=== PATIENT | female | born 1995 | race Caucasian/White ===

== ENCOUNTER → 2018-12-24 | Outpatient (CLI) | payer OTHER ==
--- NOTE | 2018-12-24 12:02 | RADIOLOGY REPORT (SQ) ---
EXAM DESCRIPTION: U/S THYROID/SFT TISS HD NECK COMPLETED DATE/TIME: 12/24/2018 11:53 am REASON FOR STUDY: R74.8 ABNORMAL LEVELS OF OTHER SERUM ENZYMES R74.8 ABNORMAL LEVELS OF OTHER SERUM ENZYMES COMPARISON: None. TECHNIQUE: Dynamic and static keller-scale images acquired of the thyroid gland. Selected additional c olor/power Doppler images recorded. All images stored to PACS. LIMITATIONS: None. FINDINGS: RIGHT LOBE: Normal size. Mild heterogeneous echotexture. No cystic or solid masses. LEFT LOBE: Normal size. Mild heterogeneous echotexture. No cystic or solid masses. ISTHMUS: Normal size. Heterogeneous echotexture. No cystic or solid masses. OTHER: No other significant finding. IMPRESSION: Heterogeneous echotexture. No focal masses. TECHNICAL DOCUMENTATION: JOB ID: [id number] [employer]- All Rights Reserved Reading location - IP/workstation name: [email or web address]
--- NOTE | 2018-12-24 12:46 | RADIOLOGY REPORT (SQ) ---
EXAM DESCRIPTION: U/S ABDOMEN LIMITED W/O DOP COMPLETED DATE/TIME: 12/24/2018 12:18 pm REASON FOR STUDY: R74.8 ABNORMAL LEVELS OF OTHER SERUM ENZYMES R74.8 ABNORMAL LEVELS OF OTHER SERUM ENZYMES COMPARISON: None. TECHNIQUE: Dynamic and static grayscale images acquired of the abdomen and recorded on PACS. Additio nal selected color Doppler and spectral images recorded. LIMITATIONS: None. FINDINGS: PANCREAS: No masses. No peripancreatic edema or fluid collections. LIVER: Echotexture is coarse with increased echogenicity consistent with fatty infiltration. LIVER VASCULATURE: Normal directional flow of the main portal vein and hepatic veins. GALLBLADDER: No stones. Normal wall thickness. No pericholecystic fluid. ULTRASOUND-DETECTED JACOBSON'S SIGN: Negative. INTRAHEPATIC DUCTS AND COMMON DUCT: CBD and intrahepatic ducts normal caliber. No filling defects. AORTA: No aneurysm. RIGHT KIDNEY: Normal size. Normal echogenicity. No solid or suspicious masses. No hydronephros is. No calcifications. PERITONEAL AND RIGHT PLEURAL SPACE: No ascites or effusions. OTHER: No other significant finding. IMPRESSION: FATTY INFILTRATION OF THE LIVER. OTHERWISE NORMAL RIGHT UPPER QUADRANT ULTRASOUND. TECHNICAL DOCUMENTATION: JOB ID: [id number] [employer]- All Rights Reserved Reading location - IP/workstation name: [email or web address]
== END ==
LOC: RAD 10:40
PROVIDERS: ATTEND Physician Assistant
DX: E03.9 Hypothyroidism, unspecified (principal); R74.9 Abnormal serum enzyme level, unspecified
CPT/HCPCS: 76536; 76705

== ENCOUNTER → 2019-04-15 | Outpatient (CLI) | payer OTHER ==
--- NOTE | 2019-04-15 14:09 | RADIOLOGY REPORT (SQ) ---
EXAM DESCRIPTION: CT ABD/PELVIS WITH IV ORAL COMPLETED DATE/TIME: 04/15/2019 1:45 pm REASON FOR STUDY: RUQ PAIN (R10.11), RLQ PAIN (R10.31) R10.11 RIGHT UPPER QUADRANT PAIN R10.31 RIG HT LOWER QUADRANT PAIN COMPARISON: None. TECHNIQUE: CT scan of the abdomen and pelvis performed using helical scanning technique with dynamic intravenous contrast injection. Additional oral contrast. Images reviewed with lung, soft tissue, a nd bone windows. Reconstructed coronal and sagittal MPR images reviewed. Delayed images for evaluatio n of the urinary system also acquired. All images stored on PACS. All CT scanners at this facility use dose modulation, iterative reconstruction, and/or weight based d osing when appropriate to reduce radiation dose to as low as reasonably achievable (ALARA). [facility]: Dose Right [facility]: CareDose [facility]: Dose Right [facility]: Teradose 4D [facility]: Shadow Puppet CONTRAST TYPE AND DOSE: contrast/concentration: Isovue 350.00 mg/ml; Total Contrast Delivered: 100.0 ml; Total Saline Delivered: 72.0 ml RENAL FUNCTION: None required. The patient is less than 50 years old. RADIATION DOSE: CT Rad equipment meets quality standard of care and radiation dose reduction techniq ues were employed. CTDIvol: 25.7 - 26.0 mGy. DLP: 3055 mGy-cm.. LIMITATIONS: None. FINDINGS: LOWER CHEST: No significant findings. No nodules or infiltrates. LIVER: Hepatomegaly and hepatic steatosis. No masses. No dilated ducts. SPLEEN: Normal size. No focal lesions. PANCREAS: No masses. No significant calcifications. No adjacent inflammation or peripancreatic fluid collections. Pancreatic duct not dilated. GALLBLADDER: No identified stones by CT criteria. No inflammatory changes to suggest cholecystitis. ADRENAL GLANDS: No significant masses or asymmetry. RIGHT KIDNEY AND URETER: No solid masses. No significant calcifications. No hydronephrosis or hyd roureter. LEFT KIDNEY AND URETER: No solid masses. No significant calcifications. No hydronephrosis or hydr oureter. AORTA AND VESSELS: No aneurysm. No dissection. Renal arteries, SMA, celiac without stenosis. RETROPERITONEUM: No retroperitoneal adenopathy, hemorrhage or masses. BOWEL AND PERITONEAL CAVITY: No masses or inflammatory changes. No free fluid or peritoneal masses. APPENDIX: Normal. PELVIS: No mass. IUD present in the uterus. No free fluid. Normal bladder. ABDOMINAL WALL: No masses. No hernias. BONES: No significant or acute findings. OTHER: No other significant finding. IMPRESSION: Hepatomegaly and hepatic steatosis. No other CT findings to explain right upper quadran t abdominal pain. TECHNICAL DOCUMENTATION: JOB ID: [id number] Quality ID # [id number]: Final reports with documentation of one or more dose reduction techniques (e.g., Au tomated exposure control, adjustment of the mA and/or kV according to patient size, use of iterative reconstruction technique) 2010 [employer]- All Rights Reserved Reading location - IP/workstation name: [email or web address]
== END ==
LOC: RAD 10:48
PROVIDERS: ATTEND Physician Assistant
DX: R10.11 Right upper quadrant pain (principal); R10.31 Right lower quadrant pain; K76.0 Fatty (change of) liver, not elsewhere classified; R16.0 Hepatomegaly, not elsewhere classified
CPT/HCPCS: 74177

== ENCOUNTER → 2019-04-16 | Outpatient (CLI) | payer OTHER ==
--- NOTE | 2019-04-16 16:29 | RADIOLOGY REPORT (SQ) ---
EXAM DESCRIPTION: NM HIDA SCAN WITH CCK COMPLETED DATE/TIME: 04/16/2019 11:48 am REASON FOR STUDY: R10.11 RIGHT UPPER QUADRANT PAIN R10.11 RIGHT UPPER QUADRANT PAIN R10.31 RIGHT L OWER QUADRANT PAIN COMPARISON: None. RADIONUCLIDE AND DOSE: DOSAGE RADIONUCLIDE: 5.43 millicuries Tc99m Mebrofenin. DOSAGE CCK: 2.5 micrograms. DOSAGE MORPHINE: Not required. The route of agent administration: Intravenous TECHNIQUE: Serial imaging right upper quadrant up to 60 minutes following injection of radionuclide. CCK injected after gallbladder visualized. LIMITATIONS: None. FINDINGS: LIVER: Normal visualization without areas of photopenia. INTRAHEPATIC BILE DUCTS: Normal size and no delay in visualization. COMMON BILE DUCT: Normal without dilatation. GALLBLADDER: Normal visualization. Calculated ejection fraction of 26%. Normal range is greater th an 35%. PHYSICAL RESPONSE: Patients presenting complaint was not reproduced. OTHER: No other significant finding. IMPRESSION: 1. ABNORMAL STUDY. GALLBLADDER EJECTION FRACTION is 26%(Normal is greater than 35%). EV IDENCE FOR BILIARY DYSKINESIS. TECHNICAL DOCUMENTATION: JOB ID: [id number] [employer]- All Rights Reserved Reading location - IP/workstation name: [email or web address]
== END ==
LOC: RAD 08:45
PROVIDERS: ATTEND Physician Assistant
DX: R10.11 Right upper quadrant pain (principal); R10.31 Right lower quadrant pain
CPT/HCPCS: 78227; J2805; A9537; Q9969